=== PATIENT | female | born 1995 | race Two or more races ===

== ENCOUNTER 2019-04-27 23:57 | Emergency (ER) | payer MEDICAID ==
[~2019-04-27] VITALS: Ht 157.5 cm; Wt 68.0 kg
[2019-04-28 00:49] LABS: Urine Bacteria FEW /hpf (None Seen); Urine Blood TRACE /uL (Negative); Urine Mucus FEW (None Seen); Urine Specific Gravity 1.016 (1.001-1.035)
[2019-04-28 00:54] LABS: Urine WBC 5 /hpf (0 - 5)
[2019-04-28 01:13] LABS: Basophils # (auto) 0.1 uL; Eosinophils # (auto) 0.3 uL; Monocytes # (auto) 0.6 uL; Nucleated Red Blood Cells % 0.1 %
[2019-04-28 01:15] LABS: Basophils % (auto) 0.7 % (0.0-2.0); Eosinophils % (auto) 3.6 % (0.0-7.0); Hematocrit 39.2 % (36.0-46.0); Hemoglobin 13.1 g/dL (12.2-16.2); Lymphocytes # (auto) 2.7 uL; Lymphocytes % (auto) 33.6 % (10.0-50.0); Mean Corpuscular Hemoglobin 26.6 pg (28.0-32.0); Mean Corpuscular Hgb Conc. 33.5 g/dL (32.0-36.0); Mean Corpuscular Volume 79.4 fL (80.0-100.0); Monocytes % (auto) 7.6 % (0.0-12.0); Neutrophils # (auto) 4.4 uL; Neutrophils % (auto) 54.5 % (37.0-80.0); Platelet Count (auto) 312 10^3/uL (140-450); Red Blood Cells 4.94 10^6/uL (4.0-5.20); Red Cell Distribution Width 15.1 % (11.8-14.3)
[2019-04-28 01:29] LABS: Albumin 3.9 g/dL (3.4-5.0); Calcium 8.3 mg/dL (8.5-10.1); Potassium 3.6 mmol/L (3.5-5.1)
[2019-04-28 01:31] LABS: BUN/Creatinine Ratio 15.2
[2019-04-28 01:33] LABS: Bilirubin, Total 0.2 mg/dL (0.2-1.0)
[2019-04-28 07:38] VITALS: BP 116/77
== END 2019-04-28 07:48 | disposition home or self-care (01) ==
LOC: ER 23:57
DX: N39.0 Urinary tract infection, site not specified (principal); M54.2 Cervicalgia; H92.01 Otalgia, right ear
CPT/HCPCS: 36415; 74176; 80053; 81001; 83690; 85025